=== PATIENT | female | born 1980 ===

== ENCOUNTER 2020-12-16 22:22 | Emergency (ER) | payer SELFPAY ==
[~2020-12-16] VITALS: Ht 175.3 cm; Wt 83.8 kg
[2020-12-16 22:27] VITALS: BP 157/102
--- NOTE | 2020-12-16 23:15 | NUR ---
Patient given discharge instructions and they have confirmed that they understand the instructions. Patient ambulatory with steady gait.
== END 2020-12-16 23:16 | disposition home or self-care (01) ==
LOC: ED 23:10
DX: L55.0 Sunburn of first degree (principal); F17.210 Nicotine dependence, cigarettes, uncomplicated; F15.10 Other stimulant abuse, uncomplicated; F12.10 Cannabis abuse, uncomplicated; Z59.0 Homelessness
CPT/HCPCS: 99281; 99406